=== PATIENT | male | born 1955 | race Caucasian/White ===

== ENCOUNTER 2017-07-11 19:59 | Emergency (ER) | payer MEDICAID ==
[~2017-07-11] VITALS: Ht 167.6 cm; Wt 91.0 kg
[2017-07-11 20:11] VITALS: BP 155/95
== END 2017-07-11 23:30 | disposition left against medical advice (07) ==
LOC: ER 20:31
DX: R07.9 Chest pain, unspecified (principal); R06.02 Shortness of breath
CPT/HCPCS: 93005; 99283